=== PATIENT | male | born 1985 | race Caucasian/White ===

== ENCOUNTER 2021-09-17 18:10 | Emergency (ER) | payer SELFPAY ==
[~2021-09-17] VITALS: Ht 165.1 cm; Wt 68.0 kg
[2021-09-17 19:00] VITALS: BP 121/62
== END 2021-09-17 19:33 | disposition left against medical advice (07) ==
LOC: ER 18:10
DX: Z53.21 Procedure and treatment not carried out due to patient leaving prior to being seen by health care provider (principal)